=== PATIENT | female | born 1980 | race Caucasian/White ===

== ENCOUNTER → 2021-04-10 00:46 | Outpatient (CLI) | payer OTHER, SELFPAY ==
[2021-04-10 17:38] LABS: SARS-CoV-2 RNA PCR Negative
== END ==
PROVIDERS: PCP Family Medicine; Visit Provider Obstetrics & Gynecology
DX: Z01.812 Encounter for preprocedural laboratory examination (principal); Z20.822 Contact with and (suspected) exposure to COVID-19
CPT/HCPCS: C9803; U0003; U0005

== ENCOUNTER 2021-04-11 10:57 | Outpatient (CLI) | payer OTHER, SELFPAY ==
[2021-04-11 12:16] LABS: Basophils Percent Auto 0.7 % (0.2-1.2); Eosinophils Absolute Auto 0.1 K/mm3 (0-0.3); Eosinophils Percent Auto 2.5 % (0-4.4); Hematocrit 37.3 % (37.0-47.0); Immature Granulocyte Absolute 0.05 K/mm3 (0.00-0.031); Immature Granulocyte Percent A 0.9 % (0-0.5); Lymphocytes Absolute Auto 1.43 K/mm3 (0.9-3.2); Lymphocytes Percent Auto 25.8 % (18.3-44.2); Mean Corpuscular HGB Conc 32.2 g/dl (32-36); Mean Corpuscular Hemoglobin 28.6 pg (26-34); Mean Platelet Volume 9.4 fl (7.4-10.4); Monocytes Absolute Auto 0.6 K/mm3 (0.1-0.6); Monocytes Percent Auto 10.1 % (2.6-8.5); Neutrophils Absolute Auto 3.3 K/mm3 (1.3-6.7); Platelet Count Result 305 k/mm3 (150-375); Red Blood Count 4.19 M/mm3 (4.2-5.4); Red Cell Distribution Width 13.3 % (11.5-14.5); White Blood Count 5.6 K/mm3 (4.5-10.0)
== END 2021-04-11 10:58 | disposition home or self-care (01) ==
LOC: ANHSURGERY 11:00
PROVIDERS: PCP Family Medicine; Visit Provider Obstetrics & Gynecology
DX: N80.9 Endometriosis, unspecified (principal)
CPT/HCPCS: 36415; 85025; 86850; 86900; 86901

== ENCOUNTER 2021-04-13 01:14 | Day surgery (SDC) | payer OTHER, SELFPAY ==
[2021-04-10 18:56] VITALS: BMI 35.2
--- NOTE | 2021-04-12 15:00 | WPDANESEPPF ---
Anes - Initial Pre Proc Eval Procedure: Operation Date: 04/13/21 07:30 Proposed Procedures p Robotic Assisted Total Vaginal Hysterectomy with Bilateral Salpingectomy - Nolberto Abel MD Date/Time: 04/12/21 15:00 Surgeon: Nolberto Abel MD Pre Op Diagnosis: enlarge uterus, endometriosis, irreg bleeding Patient Data Age: 40 Gender: F Height: 1.74 m Weight: 106.59 kg Allergies Allergy/AdvReac Type Severity Reaction Status Date / Time No Known Allergies Allergy Verified 04/13/21 06:30 Home Medications Medication Instructions Recorded Confirmed Type hydrocodone-acetaminophen 1 tablet PO Q4H PRN #30 tablet 04/13/21 Rx Patient hx anesthesia problems: none Family hx anesthesia problems: none PMFSH Past Medical History Medical History Anemia Family History Family History Father Patient's father is , Onset Age: 53 Family history of malignant neoplasm Social History Social History Smoking status: Never smoker Alcohol intake: never Living arrangements: with family Spiritual care concerns: No Anes - Eval Final PreProcedure Day of Procedure 04/12/21 15:00 Patient weight: obese Heart: regular rate and rhythm Lungs: clear to auscultation Airway: Mallampati scale class III Neurological: alert and oriented Last oral intake: >/= 8 hours ASA classification: II Emergent: no Anesthetic plan: proceed Anesthesia type and monitoring: general ETT and standard monitoring Informed Consent: The patient's anesthetic plan and its attendant risks and benefits were discussed with the patient/family/POA. Questions were solicited and answers provided to the satisfaction of the patient/family/POA.
--- NOTE | 2021-04-12 16:28 | PM.IMHP ---
H&P: HPI History of Present Illness Date/Time: 04/12/21 16:28 40-year-old multiparous patient 2 para 2 admitted for robotic hysterectomy and bilateral salpingectomy secondary to pelvic pain and dyspareunia in a markedly enlarged uterus. 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 She has pain discomfort and bleeding feeling lots of fullness. Risks and benefits were reviewed in great detail Chief Complaint: enlarged uterus with pelvic pain Review of Systems Review of Systems: All systems reviewed & are unremarkable except as noted in HPI and below PMFSH Past Medical History Medical History Anemia Family History Family History Father Patient's father is , Onset Age: 53 Family history of malignant neoplasm Social History Social History Smoking status: Never smoker Alcohol intake: never Spiritual care concerns: No Meds Home Medications and Allergies Home Medications Medication Instructions Recorded Confirmed Type No Home Medications 04/10/21 04/10/21 History Allergies Allergy/AdvReac Type Severity Reaction Status Date / Time No Known Allergies Allergy Verified 04/10/21 18:27 Exam Const: General: no acute distress Eyes: General: appearance normal, both eyes and all related structures Neck: Neck: supple and no JVD Thyroid: thyroid normal Resp: Effort & Inspection: normal respiratory effort Auscultation: clear to auscultation bilaterally Cardio: Rate: regular rate Rhythm: regular rhythm GI: Inspection: non-distended GI Palp: Yes Soft to palpation, No Tenderness to palpation present (GI) and No Guarding due to palpation present (GI) Auscultation: normal bowel sounds : External Female Exam: normal external appearance Speculum Exam - Vagina: normal appearance of the vagina Speculum Exam - Cervix: normal appearance of the cervix Bimanual exam- vagina & uterus: enlarged and Uterine tenderness Bimanual Exam- Adnexa, other: normal adnexae Skin: General skin exam: no rashes or lesions noted Extrem: General: normal to inspection and no edema Psych: Mental Status: mental status grossly normal Affect: normal affect Assessment and Plan Additional Plan impression: enlarged uterus pelvic pain Plan: Robotic total vaginal hysterectomy and bilateral salpingectomies
[2021-04-13] VITALS (13 sets, daily range): BP systolic 99–143; BP diastolic 58–79; PULSE 62–96; RESP 7–18; TEMP 36.4–37.2; O2SAT 92–100; BMI 35.2
--- NOTE | 2021-04-13 05:58 | WPDHPUPDATE1 ---
History and Physical Update Update Date/Time: 04/13/21 05:58 History and Physical has been reviewed, including an updated exam of the patient. There are NO changes in the patient's condition. Risks, benefits, and alternatives have been discussed and questions answered. Patient agrees to proceed with procedure.
[2021-04-13] MEDS: LACTATED RINGERS 1,000 ML 30 ML IV CONT ×2 (06:43→09:36)
[2021-04-13] MEDS: ACETAMINOPHEN 500 MG TABLET 1000 MG PO (06:44)
[2021-04-13] MEDS: KETOROLAC 15 MG/ML VIAL (*BKC) IV PUSH (06:45)
[2021-04-13] MEDS: ceFAZolin 2 GM/D5W 50 ML 2 GM/50 ML BAG IVPB (07:24)
--- NOTE | 2021-04-13 09:15 | W.PM.PROC2 ---
Procedure Note - Detailed Date of Procedure 04/13/21 Pre-op Diagnosis enlarge uterus, endometriosis, irreg bleeding Post-op Diagnosis same Procedure Performed Robotic total vaginal hysterectomy and bilateral salpingectomy Surgeon Nolberto Abel MD Anesthesia general Indications this is a 40-year-old patient with heavy bleeding pelvic pain and known fibroids with excessive heavy bleeding Findings markedly enlarged uterus. Normal-appearing ovaries and tubes Description of Procedure the patient was prepped draped in the normal sterile fashion placed in the dorsal lithotomy position. Under excellent general endotracheal weighted speculum placed in posterior fornix vagina. Anterior lip of the cervix grasped with a single-tooth tenaculum uterus sounded to 14cm. The a 12. MYAH and the 3. 0.5 cold cup were placed. A 16 Spanish catheter was placed to drain the bladder. The remainder the instruments removed and the gloves were changed. A supraumbilical incision made the Veress needle passed in the abdomen. The abdomen filled with CO2 gas to 15 of mercury. 8Mm trocar advanced in the abdomen downside visualized. Injury seen gas reattached patient placed in Trendelenburg. Right left lateral quadrant incisions made the 8mm trocars advanced under direct visualization assuring no injury. A right upper quadrant incision made and the 8mm trocar advanced direct visualization assuring no injury. The robot was docked. Attention was turned to the residential treatment counselor. The left round ligament was grasped, burned, cut. Anteriorly bladder flap was formed by sharply dissecting the peritoneum and reflecting the bladder caudally to the opposite round ligament which was clamped, burned, cut. The uterus was huge incised with the superior fundal fibroid that extended off to the right. The left fallopian tube was dissected by sharp dissection with monopolar cautery and left attached at its attachment at the uterus. This was repeated on the contralateral side remove the right tube the left utero-ovarian ligament was then skeletonized. This conserving the left ovary. This was clamped, burned, cut and brought to the level of the previously cut round ligament. In like fashion conserving the right ovary the utero-ovarian ligament was clamped, burned, cut and brought to the level of previous cut round ligament. The left cardinal and broad ligaments were then serially skeletonized down lateral edge of the uterus these were thick with huge blood vessels they were individually clamped, burned, cut until the uterine vessels could be seen the base of Petterchak junction cervix and uterus. These were clamped, burned, cut individually. In like fashion the cardinal and broad ligaments on the right were serially skeletonized these were clamped, burned, cut and brought down the lateral edge of the uterus until the uterine vessels could be seen in the rain these were large and tortuous and individually clamped, burned, cut. The uterus blanched a circumferential incision was made with a colpotomy incision. The fundus was and then snow coned still being attached to the uterus and the uterus and tubes removed through the vagina. The vagina was closed with continuous running 0V lock from lateral edge to lateral edge back the midline. Irrigation undertaken to clear blood loss estimated at50cc Morrice term was placed over the pedicles and the all appeared dry. The gas was removed from the abdomen after the robot was undocked. The incisions closed with 4 Monocryl and glue. The patient went to recovery in satisfactory condition. All sponge, needle, instrument counts were correct. There were no immediate complications Estimated Blood Loss 50 Drains No Packing No Pathology yes Condition stable Disposition PACU
--- NOTE | 2021-04-13 10:23 | SUR.PHASEI ---
1024 sbar faxed floor notified
--- NOTE | 2021-04-13 11:15 | SUR.PHASEI ---
1115 floor rn is still unavailable
--- NOTE | 2021-04-13 11:30 | PC.NURSE ---
This patient, Kalie Osman, was received from PACU on 04/13/21 at 1130. Patient/family oriented to unit policies and routines
[2021-04-13] MEDS: DEXTROSE 5%/LACTATED RINGERS 1,000 ML 125 ML IV CONT (12:08)
[2021-04-13] MEDS: KETOROLAC 30 MG/ML VIAL (*BKC) IV PUSH (12:08)
[2021-04-13] MEDS: HYDROcodone/acetaminophen (*CRX) 10-325 MG TABLET 1 TAB PO (17:56)
[2021-04-13] MEDS: HYDROcodone/acetaminophen (*CRX) 5-325 MG TABLET 1 TAB PO (22:21)
[2021-04-14 00:30] VITALS: BP 118/66; PULSE 74; RESP 16; TEMP 36.8; O2SAT 95
[2021-04-14] MEDS: IBUPROFEN 600 MG TABLET PO ×2 (00:35→10:46)
[2021-04-14 04:47] VITALS: BP 102/58; PULSE 76; RESP 16; TEMP 36.7; O2SAT 97
[2021-04-14] MEDS: HYDROcodone/acetaminophen (*CRX) 5-325 MG TABLET 1 TAB PO ×2 (04:53→10:46)
[2021-04-14 06:05] LABS: Basophils Percent Auto 0.3 % (0.2-1.2); Eosinophils Percent Auto 0.2 % (0-4.4); Hematocrit 32.6 % (37.0-47.0); Hemoglobin 10.5 g/dL (12.0-15.0); Immature Granulocyte Absolute 0.07 K/mm3 (0.00-0.031); Immature Granulocyte Percent A 0.5 % (0-0.5); Lymphocytes Absolute Auto 1.16 K/mm3 (0.9-3.2); Lymphocytes Percent Auto 8.8 % (18.3-44.2); Mean Corpuscular HGB Conc 32.2 g/dl (32-36); Mean Corpuscular Volume 90.1 fl (80-100); Mean Platelet Volume 9.6 fl (7.4-10.4); Monocytes Absolute Auto 0.7 K/mm3 (0.1-0.6); Monocytes Percent Auto 5.6 % (2.6-8.5); Neutrophils Absolute Auto 11.2 K/mm3 (1.3-6.7); Neutrophils Percent Auto 84.6 % (45.5-73.1); Platelet Count Result 287 k/mm3 (150-375); Red Blood Count 3.62 M/mm3 (4.2-5.4); Red Cell Distribution Width 13.3 % (11.5-14.5); White Blood Count 13.2 K/mm3 (4.5-10.0)
[2021-04-14 07:50] VITALS: BP 112/56; PULSE 76; RESP 18; TEMP 37; O2SAT 97
[2021-04-14] MEDS: ENOXAPARIN 40 MG/0.4 ML SYRINGE SUB-Q (07:58)
[2021-04-14] MEDS: DOCUSATE SODIUM 100 MG CAPSULE PO (07:58)
--- NOTE | 2021-04-14 10:26 | PM.GYNPNOP ---
DREDGEMASTER - A/P Postoperative Procedures: Procedures Operation Date: 04/13/21 07:30 Actual Procedure Side Surgeon p Robotic Assisted Total Vaginal Hysterectomy with Bilateral Salpingectomy Bilateral Nolberto Abel MD A: POD#1, doing well. P: Home to f/u 2 weeks. Time Spent With Patient Time with patient: less than 15 minutes DREDGEMASTER- PN:Subj Post-Op Subjective Date/time seen: 04/14/21 10:26 Interval history: Pain OK. Tolerating diet. Voiding. Would like to go home. Exam Narrative: Exam Narrative: AVSS I/O OK ABD soft, nontender. Incisions c/d/i. EXT nontender DREDGEMASTER - PN: Obj Data Vital Signs Vital Signs: Vital Signs - 24 hr 04/13/21 10:40 04/13/21 10:55 04/13/21 11:10 Temperature Pulse Rate 73 70 69 Respiratory Rate 14 12 13 Blood Pressure 118/62 119/67 118/61 Pulse Oximetry 98 95 92 04/13/21 11:40 04/13/21 15:30 04/13/21 20:30 Temperature 36.4 C L 37.1 C 37.2 C Pulse Rate 68 85 96 Respiratory Rate 16 16 18 Blood Pressure 120/60 120/70 143/79 H Pulse Oximetry 94 96 98 04/13/21 20:45 04/14/21 00:30 04/14/21 04:47 Temperature 36.8 C 36.7 C Pulse Rate 96 74 76 Respiratory Rate 18 16 16 Blood Pressure 118/66 102/58 L Pulse Oximetry 98 95 97 Intake/Output Intake/Output: Intake & Output 04/11/21 04/12/21 04/13/21 04/14/21 23:59 23:59 23:59 23:59 Intake Total 2930 120 Output Total 1705 300 Balance 1225 -180 Meds/Results Medications: Active Medications Generic Name Dose Route Start Last Admin Trade Name Freq PRN Reason Stop Dose Admin Hydrocodone Bitart/Acetaminophen 1 tab 04/13/21 11:24 04/14/21 04:53 Hydrocodone/Acetaminophen (*Crx) 5-325 Mg Tablet PO 1 tab Q3H PRN Administration Pain Rated 5 or Less Hydrocodone Bitart/Acetaminophen 1 tab 04/13/21 11:24 04/13/21 17:56 Hydrocodone/Acetaminophen (*Crx) 10-325 Mg Tablet PO 1 tab Q3H PRN Administration Pain Rated 6 or Greater Docusate Sodium 100 mg 04/13/21 17:00 04/14/21 07:58 Docusate Sodium 100 Mg Capsule PO 100 mg BID MAUREEN Administration Enoxaparin Sodium 40 mg 04/14/21 09:00 04/14/21 07:58 Enoxaparin 40 Mg/0.4 Ml Syringe SUB-Q 40 mg DAILY MAUREEN Administration Ibuprofen 600 mg 04/13/21 11:24 04/14/21 00:35 Ibuprofen 600 Mg Tablet PO 600 mg Q6H PRN Administration Cramping Ketorolac Tromethamine 30 mg 04/13/21 11:24 04/13/21 12:08 Ketorolac 30 Mg/Ml Vial (*Bkc) IV PUSH 04/18/21 11:25 30 mg Q6H PRN Administration Pain Rated 4-6 Naloxone HCl 0.1 mg 04/13/21 11:24 Naloxone Hcl 0.4 Mg/Ml Vial IV PUSH Q2M PRN Respiratory rate less than 10 Ondansetron HCl 4 mg 04/13/21 11:24 Ondansetron Inj 4 Mg/2 Ml Vial IV PUSH Q6H PRN Nausea And Vomiting Labs CBC & Chem 7: 04/14/21 05:31 Labs: Laboratory Results - last 24 hr 04/14/21 05:31 WBC 13.2 H RBC 3.62 L Hgb 10.5 L Hct 32.6 L MCV 90.1 MCH 29.0 MCHC 32.2 RDW 13.3 Plt Count 287 MPV 9.6 Immature Gran % (Auto) 0.5 Neut % (Auto) 84.6 H Lymph % (Auto) 8.8 L [place] % (Auto) 5.6 Eos % (Auto) 0.2 Baso % (Auto) 0.3 Lymph # (Auto) 1.16 [place] # (Auto) 0.7 H Eos # (Auto) 0.0 Baso # (Auto) 0.0 Abs Immat Gran (auto) 0.07 H Absolute Neuts (auto) 11.2 H Absolute Nucleated RBC 0.0 Nucleated RBC % 0.0
--- NOTE | 2021-04-14 11:32 | WPDANESPN ---
Anes - Prog Note Post-Op Date/Time: 04/14/21 11:32 Cardiovascular status: normal Respiratory status: normal Airway patency: baseline Mental status: baseline Post-Op hydration status: normal Vital Signs: Last Vital Signs Temp 36.7 C 04/14/21 04:47 Pulse 76 04/14/21 04:47 Resp 16 04/14/21 04:47 BP 102/58 L 04/14/21 04:47 Pulse Ox 97 04/14/21 04:47 Pain Score (VAS): 0 I/O: Intake & Output 04/13/21 04/14/21 04/14/21 23:59 07:59 15:59 Intake Total 1880 120 Output Total 825 300 Balance 1055 -180 Laboratory Tests 04/14/21 05:31 04/14/21 05:31 WBC 13.2 H RBC 3.62 L Hgb 10.5 L Hct 32.6 L MCV 90.1 MCH 29.0 MCHC 32.2 RDW 13.3 Plt Count 287 MPV 9.6 Immature Gran % (Auto) 0.5 Neut % (Auto) 84.6 H Lymph % (Auto) 8.8 L [place] % (Auto) 5.6 Eos % (Auto) 0.2 Baso % (Auto) 0.3 Lymph # (Auto) 1.16 [place] # (Auto) 0.7 H Eos # (Auto) 0.0 Baso # (Auto) 0.0 Abs Immat Gran (auto) 0.07 H Absolute Neuts (auto) 11.2 H Absolute Nucleated RBC 0.0 Nucleated RBC % 0.0 Post-procedural complaints: none Patient Feedback: Patient satisfied with anesthetic care.
== END 2021-04-14 11:30 | disposition home or self-care (01) ==
LOC: ANHSURGERY 06:05 → ANHOB2 11:29
PROVIDERS: PCP Family Medicine; Visit Provider Obstetrics & Gynecology
PROC: (CPT 58554; principal; 2021-04-13 07:30)
DX: N93.9 Abnormal uterine and vaginal bleeding, unspecified (principal); D25.1 Intramural leiomyoma of uterus; N94.10 Unspecified dyspareunia; R10.2 Pelvic and perineal pain; D64.9 Anemia, unspecified; E66.9 Obesity, unspecified; Z68.35 Body mass index [BMI] 35.0-35.9, adult
CPT/HCPCS: 58554; S2900; 36415; 85025; 88307; 99199; A9270; C9803; J0690; J1100; J1170; J1650; J1885; J2250; J2405; J2704; J3010; J7030; J7120; J7121; U0003; U0005

== ENCOUNTER 2021-04-21 10:23 | Emergency (ER) | payer OTHER, SELFPAY ==
--- NOTE | ~2021-04-21 | CT_ITS ---
EXAMINATION: CT abdomen pelvis wo con EXAM DATE: 04/21/2021 11:34 INDICATION: Right flank pain, hysterectomy one week ago. TECHNIQUE: Spiral CT of the abdomen and pelvis was performed without contrast. Axial, coronal and sag ittal images were reviewed. The dose-length product (DLP) for this examination was 567.17 mGy-cm. T he exposure was tailored according to patient size (auto mA exposure control), and iterative reconstr uction (ASIR) was used as additional dose reduction technique. There is no prior study for compariso n. FINDINGS: There is mild right hydroureteronephrosis, to the pelvis, where there is moderate amount of fat stranding, some small foci of gas all likely postoperative. No organized abscess identified. No obstructing ureteral stone. There is punctate nonobstructing left nephrolithiasis. The bladder is co llapsed at time of imaging limiting evaluation. The liver, spleen, adrenal glands and pancreas are u nremarkable. There are cholecystectomy clips. There is no retroperitoneal or pelvic lymphadenopathy . Small umbilical fat-containing hernia. There are no findings to suggest appendicitis. Mild sigmoid diverticulosis. The stomach and small bow el are unremarkable. There is expected amount of colonic stool. No free intraperitoneal gas. The heart is normal in size. There are no pericardial or pleural effusions. The lung bases are unremar kable. There are no osteoblastic or osteolytic lesions identified. IMPRESSION: Mild right hydroureteronephrosis without obstructing stone identified, could be due to th e postoperative pelvic inflammation. Punctate left nephrolithiasis. Reviewed, dictated and finalized at location G. IMPRESSION: Mild right hydroureteronephrosis without obstructing stone identifi ed, could be due to the postoperative pelvic inflammation. Punctate left nephro lithiasis.
[2021-04-21 10:31] VITALS: BP 167/76; PULSE 100; RESP 18; TEMP 36.4; O2SAT 96
[2021-04-21 11:00] LABS: Basophils Absolute Auto 0.1 K/mm3 (0.0-0.1); Basophils Percent Auto 0.5 % (0.2-1.2); Eosinophils Absolute Auto 0.7 K/mm3 (0-0.3); Eosinophils Percent Auto 5.5 % (0-4.4); Hematocrit 37.7 % (37.0-47.0); Hemoglobin 12.2 g/dL (12.0-15.0); Immature Granulocyte Absolute 0.06 K/mm3 (0.00-0.031); Immature Granulocyte Percent A 0.5 % (0-0.5); Lymphocytes Absolute Auto 1.49 K/mm3 (0.9-3.2); Lymphocytes Percent Auto 11.2 % (18.3-44.2); Mean Corpuscular HGB Conc 32.4 g/dl (32-36); Mean Corpuscular Hemoglobin 28.4 pg (26-34); Mean Corpuscular Volume 87.9 fl (80-100); Mean Platelet Volume 9.5 fl (7.4-10.4); Monocytes Percent Auto 7.7 % (2.6-8.5); Neutrophils Absolute Auto 9.9 K/mm3 (1.3-6.7); Neutrophils Percent Auto 74.6 % (45.5-73.1); Platelet Count Result 324 k/mm3 (150-375); Red Blood Count 4.29 M/mm3 (4.2-5.4); Red Cell Distribution Width 13.2 % (11.5-14.5); White Blood Count 13.3 K/mm3 (4.5-10.0)
[2021-04-21 11:04] LABS: Add Urine Microscopic? YES; Appearance Urine Turbid (Clear); Bacteria Urine 2+ /hpf; Bilirubin Urine Negative (Negative); Blood Urine 3+ (Negative); Color Urine Yellow (Yellow); Glucose Urine UA Negative (Negative); Ketones Urine 1+ mg/dL (Negative); Leukocyte Esterase Ur 3+ LEU/UL (Negative); Mucus Urine Rare /lpf; Nitrate Urine Negative (Negative); Protein Urine 2+ mg/dL (Negative); RBC Urine >75 /hpf (0-2); Squamous Epithelial Cell Urine Many /hpf (Few); Urobilinogen Urine Negative mg/dL (<2.0); WBC Clumps Urine Present /HPF; WBC Urine >75 /hpf
--- NOTE | 2021-04-21 11:18 | ED.FEMALEGU ---
HPI - Female Genitourinary General Chief complaint: Urogenital-Female Stated complaint: kidney infection/kidney stone/post op Time Seen by Provider: 04/21/21 11:06 Source: patient Mode of arrival: ambulatory Limitations: no limitations History of Present Illness HPI Narrative: Patient is a 40 year old female who presents complaining of right flank pain, dysuria, frequency and urgency. She reports scanty amount of urine. Patient reports recent hysterectomy on 04/13 and initially had urinary catheter placed. Patient reports when catheter was removed she felt pressure. She reports being treated this week with nitrofurantoin for UTI. She reports symptoms have increased. She reports calling SALES PROMOTION DIRECTOR was sent to the ED for further evaluation. She reports taking [id number] medications for pain at this time. She denies significant medical history. She denies fever, however reports intermittent chills over the past few days. Related Data Allergies Allergy/AdvReac Type Severity Reaction Status Date / Time No Known Allergies Allergy Verified 04/21/21 10:35 Review of Systems Review of Systems: Narrative: CONSTITUTIONAL: Denies fever, chills, or sweats. EYES: Denies visual changes, redness, or discharge. ENT: Denies rhinorrhea, congestion, sore throat, or otalgia. CARDIOVASCULAR: Denies chest pain, palpitations, or edema. RESPIRATORY: Denies cough or dyspnea. GASTROINTESTINAL: Denies abdominal pain, nausea, vomiting, or diarrhea. GENITOURINARY: Reports dysuria and right flank pain. SKIN: Denies rash or itching. MUSCULOSKELETAL: Denies back pain, joint pain, or myalgia. NEUROLOGIC: Denies headache, numbness, dizziness, or weakness. PSYCHIATRIC: Denies anxiety or depression. PMFSH Past Medical History Medical History Anemia Family History Family History Father Patient's father is , Onset Age: 53 Family history of malignant neoplasm Social History Social History Smoking status: Never smoker Alcohol intake: never Spiritual care concerns: No Exam Narrative: Exam Narrative: GENERAL: Well-appearing, well-nourished, and in no acute distress. HEAD: Normocephalic, atraumatic. EYES: EOMI. No redness or drainage. Conjunctiva are normal. ENT: Mucous membranes pink and moist. CHEST: No respiratory distress. HEART: Regular rate and rhythm. GI: Soft, nontender without rebound, or guarding. No distention. Bowel sounds normal in all quadrants. : Right CVA tenderness noted with palpation. MUSCULOSKELETAL: No bony tenderness. EXTREMITIES: Normal range of motion. No edema. SKIN: Warm, dry, no rash. NEURO: No focal deficits. Alert and oriented x3. Gait steady. PSYCH: Normal affect. No signs of depression or anxiety. Course Vital Signs Vital signs: Vital Signs Temperature 36.4 C L 04/21/21 10:31 Pulse Rate 100 04/21/21 10:31 Respiratory Rate 18 04/21/21 10:31 Blood Pressure 167/76 H 04/21/21 10:31 Pulse Oximetry 96 04/21/21 10:31 Temperature 36.4 C L 04/21/21 10:31 Pulse Rate 100 04/21/21 10:31 Respiratory Rate 18 04/21/21 10:31 Blood Pressure 167/76 H 04/21/21 10:31 Pulse Oximetry 96 04/21/21 10:31 Reviewed-patient is informed that they may have pre-hypertension or hypertension based on a blood pressure reading. I recommend the patient call the primary care provider listed on their discharge instructions or a physician of their choice this week to arrange follow-up for further evaluation of possible pre-hypertension or hypertension. MDM - Female Genitourinary MDM Narrative Medical decision making narrative: Patient has mild leukocytosis, most likely related to UTI versus pyelonephritis versus kidney stone. Patient started on ceftriaxone in emergency department. Instructed to stop taking nitrofurantoin and
[2021-04-21 11:26] LABS: Alanine Aminotransferase 20 U/L (4-35); Albumin Level 4.4 g/dL (3.5-5.1); Alkaline Phosphatase 102 U/L (38-126); Anion Gap 11 mmol/L (8-16); Aspartate Amino Transferase 28 U/L (14-36); Bilirubin,Total 0.7 mg/dL (0.2-1.3); Blood Urea Nitrogen 9 mg/dL (7-17); Calcium 9.4 mg/dL (8.4-10.2); Carbon Dioxide 24 mmol/L (22-30); Chloride 101 mmol/L (98-107); Estimated CRCL calculation 92 ml/min; Estimated Glomerular Filt Rate > 60; Glucose 108 mg/dL (65-110); Potassium 3.9 mmol/L (3.4-5.0); Sodium 136 mmol/L (137-145)
[2021-04-21] MEDS: ONDANSETRON INJ 4 MG/2 ML VIAL IV PUSH (11:40)
[2021-04-21] MEDS: MORPHINE SULFATE (*CRX) 4 MG/ML INJ IV PUSH (11:40)
[2021-04-21] MEDS: SODIUM CHLORIDE 0.9% IV 1,000 ML 999 ML IV CONT (12:08)
== END 2021-04-21 14:48 | disposition home or self-care (01) ==
PROVIDERS: Emergency Medicine; Emergency Provider Nurse Practitioner; PCP Family Medicine
DX: N39.0 Urinary tract infection, site not specified (principal); Z86.2 Personal history of diseases of the blood and blood-forming organs and certain disorders involving the immune mechanism; N13.30 Unspecified hydronephrosis; N20.0 Calculus of kidney
CPT/HCPCS: 36415; 74176; 80053; 81001; 85025; 87086; 87088; 96361; 96365; 96375; 99284; J0696; J2270; J2405; J7030